=== PATIENT | female | born 1960 | race Caucasian/White ===

== ENCOUNTER 2025-08-27 15:01 | Emergency (ER) | payer BC ==
[2025-08-27] MEDS: Ketorolac 30 MG/ML SDV IM ONE (15:31)
== END 2025-08-27 16:44 | disposition home or self-care (01) ==
LOC: DL.ED 15:01
DX: S82.042A Displaced comminuted fracture of left patella, initial encounter for closed fracture (principal); W18.40XA Slipping, tripping and stumbling without falling, unspecified, initial encounter; Y99.0 Civilian activity done for income or pay
CPT/HCPCS: 73562; 96372; 99283; J1885; 99284